=== PATIENT | male | born 1990 | race Two or more races ===

== ENCOUNTER 2019-05-11 17:09 | Emergency (ER) | payer OTHER ==
[~2019-05-11] VITALS: Ht 175.3 cm; Wt 77.0 kg
[2019-05-11 18:05] VITALS: BP 132/85
[2019-05-11] MEDS ORDERED: BACITRACIN ZINC OINT UDPKT TOP ONE (19:15)
[2019-05-11] MEDS ORDERED: LIDOCAINE HCL/PF 1% 10 MG/ML 5ML VIAL IJ ONE (19:15)
[2019-05-11] MEDS ORDERED: IBUPROFEN 600MG TABLET PO ONE (19:15)
[2019-05-11] MEDS ORDERED: TETANUS, DIPHTHERIA, PERTUSSIS VAC/PF 0.5ML (>7YR OLD) IM ONE (19:15)
== END 2019-05-11 21:20 | disposition home or self-care (01) ==
LOC: ER 17:09
DX: S61.412A Laceration without foreign body of left hand, initial encounter (principal); W29.8XXA Contact with other powered hand tools and household machinery, initial encounter; Y93.89 Activity, other specified; Y92.89 Other specified places as the place of occurrence of the external cause; Y99.8 Other external cause status
CPT/HCPCS: 12002; 73130; 90471; 90715; 99283; J3490; Z7610